=== PATIENT | male | born 1950 | race Two or more races ===

== ENCOUNTER 2019-09-20 07:49 | Emergency (ER) | payer OTHER, MEDICAID ==
[~2019-09-20] VITALS: Ht 165.1 cm; Wt 70.3 kg
[2019-09-20 08:04] VITALS: BP 174/92
[2019-09-20] MEDS ORDERED: KETOROLAC TROMETH 60MG/2ML VIAL IM ONE (08:30)
== END 2019-09-20 09:43 | disposition home or self-care (01) ==
LOC: ER 07:49
DX: M51.17 Intervertebral disc disorders with radiculopathy, lumbosacral region (principal); M17.12 Unilateral primary osteoarthritis, left knee; X50.1XXA Overexertion from prolonged static or awkward postures, initial encounter; Y93.89 Activity, other specified; Y99.8 Other external cause status; Y92.89 Other specified places as the place of occurrence of the external cause
CPT/HCPCS: 72100; 73562; 96372; 99284; J1885

== ENCOUNTER 2021-07-20 10:09 | Emergency (ER) | payer MEDICAID, OTHER ==
[~2021-07-20] VITALS: Ht 157.5 cm; Wt 69.9 kg
[2021-07-20 12:47] VITALS: BP 194/97
[2021-07-20] MEDS ORDERED: MELO7.5T9 PO (13:35)
[2021-07-20] MEDS ORDERED: KETOROLAC TROMETH 60MG/2ML VIAL IM ONE (13:45)
== END 2021-07-20 14:00 | disposition home or self-care (01) ==
LOC: ER 10:09
DX: M17.12 Unilateral primary osteoarthritis, left knee (principal); I10 Essential (primary) hypertension
CPT/HCPCS: 73562; 96372; 99283; J1885